=== PATIENT | female | born 1980 | race African-American/Black ===

== ENCOUNTER 2017-05-24 09:39 | Inpatient (IN) | payer OTHER ==
[~2017-05-24] VITALS: Ht 162.6 cm; Wt 85.7 kg
[2017-05-24] MEDS ORDERED: LACTATED RINGER'S 1,000 ML IV PRN (10:30)
[2017-05-24] MEDS ORDERED: LACTATED RINGER'S 1,000 ML IV SCH (10:51)
[2017-05-24 10:53] VITALS: Ht 162.6 cm; Wt 85.7 kg
[2017-05-24] MEDS ORDERED: OXYTOCIN 30 UNITS/LR 500 ML IV PRN (11:00)
[2017-05-24] MEDS ORDERED: METHYLERGONOVINE 0.2 MG INJ IM PRN ×2 (11:00→15:00)
[2017-05-24] MEDS ORDERED: LIDOCAINE 1% (MPF) 30 ML INJ INJ PRN (11:00)
[2017-05-24] MEDS ORDERED: OXYTOCIN 30 UNITS/LR 500 ML IV SCH ×2 (11:00)
[2017-05-24] MEDS ORDERED: CARBOPROST 250 MCG INJ IM PRN ×2 (11:00→15:00)
[2017-05-24] MEDS ORDERED: MISOPROSTOL 200 MCG TAB PR PRN ×2 (11:00→15:00)
[2017-05-24] MEDS ORDERED: CEFAZOLIN 2 GM/50 ML (PMX) 50 ML IV ONE (11:00)
[2017-05-24 11:17] LABS: BASOPHILS % 0.3 % (0.0-2.0); EOSINOPHILS # 0.1 10^3/ul (0.0-0.5); EOSINOPHILS % 0.5 % (0.0-7.0); HEMATOCRIT 38.1 % (37.0-47.0); HEMOGLOBIN 12.7 g/dl (12.0-16.0); LYMPHOCYTES % 22.1 % (15.0-51.0); MEAN CORPUSCULAR HEMOGLOBIN 28.7 pg (29.0-33.0); MEAN CORPUSCULAR HGB CONC 33.3 g/dl (32.0-37.0); MEAN CORPUSCULAR VOLUME 86.2 fl (82.0-101.0); MEAN PLATELET VOLUME 10.3 fl (7.4-10.4); MONOCYTE # 0.5 10^3/ul (0.3-0.9); MONOCYTES % 5.7 % (0.0-11.0); NEUTROPHIL # 6.4 10^3/ul (1.6-7.5); NEUTROPHILS % 70.1 % (39.0-77.0); PLATELET COUNT 252 10^3/UL (140-415); RED BLOOD COUNT 4.42 10^6/ul (4.20-5.40); RED CELL DISTRIBUTION WIDTH 13.2 % (11.5-14.5); WHITE BLOOD COUNT 9.1 10^3/ul (4.8-10.8)
[2017-05-24 11:51] LABS: INR 0.97; PROTIME 12.9 Sec (12.2-14.2)
[2017-05-24 11:52] LABS: PARTIAL THROMBOPLASTIN TIME 29.7 Sec (25.0-35.0)
[2017-05-24] MEDS ORDERED: OXYTOCIN 10 UNIT INJ ONE (12:45)
[2017-05-24] MEDS ORDERED: morphine SULFATE/PF (10 MG/10 ML) INJ ONE (12:45)
[2017-05-24] MEDS ORDERED: PHENYLephrine (100 MCG/ML) 5ML SYG ONE ×2 (12:45→13:32)
[2017-05-24] MEDS ORDERED: ONDANSETRON 4 MG INJ ONE (12:45)
[2017-05-24] MEDS ORDERED: MIDAZOLAM 1 MG/ML 2 ML INJ ONE (13:40)
[2017-05-24] MEDS ORDERED: DIPHENHYDRAMINE 50 MG INJ IV PRN (14:30)
[2017-05-24] MEDS ORDERED: NALOXONE (0.4 MG/ML) INJ IV PRN (14:30)
[2017-05-24] MEDS ORDERED: ONDANSETRON 4 MG INJ IV PRN (14:30)
[2017-05-24] MEDS ORDERED: KETOROLAC 30 MG INJ IV PRN (14:30)
[2017-05-24] MEDS ORDERED: morphine 2 MG INJ IV PRN (14:30)
[2017-05-24] MEDS: LACTATED RINGER'S 1,000 ML IV SCH ×2 (14:56→22:25)
[2017-05-24] MEDS ORDERED: LANOLIN 7 GM TUBE TOP PRN (15:00)
[2017-05-24] MEDS ORDERED: OXYCODONE/ACETAMINOPHEN (5/325) TAB PO PRN ×2 (15:00)
--- NOTE | 2017-05-24 15:03 | OPR ---
Operative Report Planned Procedure Procedure date May 24, 2017 Procedure(s) Repeat Performed by see signature line Intellectual Property Counsel Dr Mason Anesthesiologist: JOSH DÍAZ MD Pre-procedure diagnosis IUP at 39 weeks. Previous section x 2, for a repeat. Anesthesia Type: spinal Post-Procedure Post-procedure diagnosis Repeat Findings Viable baby girl weighing 3875 grams or 8# 9 oz, 20.5" long, and with Apgars of 9/9. Estimated Blood Loss: 500 - 600 mls Specimen(s) none Grafts/Implant(s) none Complication(s) none Pt Condition post procedure: stable Disposition: PACU Procedure Description Pt was brought to the OR and a spinal was placed. She was then prepped and draped in the usual sterile fashion. A knife was used to incise the skin down to the level of the fascia removing the old scar. Scissors were then used to extend the fascial incision bilaterally. The superior edge of the fascia was grasped and the rectus muscles were from the fascia using blunt dissection and bovie cautery. This was repeated at the lower edge of the incision as well. The rectus muscles were at midline and the peritoneum was bluntly entered using the surgeon's fingers. The incision was stretched open using the surgeon's hands. A bladder blade and Banda retractor were placed. The bladder flap was developed. A knife was used to incise the lower uterine segment and the uterus was entered using a Alexandra clamp. The incision was then stretched open using the surgeon's hands. The head was elevated and with gentle fundal pressure the baby was delivered. 30 seconds was allowed to pass and then the cord was doubly clamped and cut and the baby was brought to the warmer and the NICU respiratory team was in attendance. The placenta was manually extracted, the uterus was externalized and wrapped in a moist lap and a dry lap was used to clean the inside of the uterus. The incision was closed in 2 layers with #1 chromic suture with excellent hemostasis. The pelvis was irrigated and the uterus was replaced back into the abdomen. The incision was examined again and noted to be dry. The peritoneum was closed with 2-0 chromic and the rectus muscles were brought back together at midline using 2 interrupted figure of 8 sutures. The underbelly of the fascia was noted to be dry and the fascia was closed using 0 Vicryl from each lateral edge to midline with overlap at the midline. The incision was then irrigated well and the subcutaneous layer was closed using 0 plain suture and the skin was closed using 3-0 Monocryl in a subcuticular stitch. Steristrips with Mastosol were placed. A pressure dressing was applied overall. The pt tolerated the procedure well and was brought to the recovery room in excellent condition. ZENAIDA ZAPATA MD May 24, 2017 15:03
--- NOTE | 2017-05-24 15:06 | HP ---
Date/Time of Note Date/Time of Note DATE: 05/24/17 TIME: 15:03 OB - History Hx of Present Free Text/Dictation 36 y.o. A2 Molar1 with an IUP at 39 weeks scheduled for a repeat C- section. Estimated Due Date: May 31, 2017 : 5 Para: 2 Therapeutic : 3 Care: Good Care Ultrasounds: Normal mid trimester US Obstetrical Complications: None Medical Complications: None Past Family/Social History * Past Medical, Surgical, Family and Obstetric Histories reviewed from chart. Blood Type: O+ Rubella: immune RPR/VDRL: Negative GBS Status: Negative HBsAG: Negative OB Admission Exam Physical Exam HEENT: WNL Heart: Rhythm Normal Lungs: Clear Abdomen: WNL Extremities: Edema (1+) Reflexes: Normal Cervical Dilatation: None Effacement: 0% Station: Ballotable Membranes: Intact Amniotic Fluid: Clear Heart Rate: 140's Accelerations: Accelerations Present Decelerations: No Decelerations Varibility: Moderate Contractions on Admission: None Last 72 hours Lab Results CBC & BMP 05/24/17 10:24 OB Assessment/Plan Reason for admission: section Plan: Section ZENAIDA ZAPATA MD May 24, 2017 15:06
[2017-05-24] MEDS: OXYTOCIN 30 UNITS/LR 500 ML IV PRN (16:28)
[2017-05-24 17:00] VITALS: BP 120/56; PULSE 87; RESP 16
[2017-05-24 20:00] VITALS: BP 122/78; PULSE 66; RESP 18
[2017-05-25] VITALS: BP 127/76; PULSE 72; RESP 18
[2017-05-25 04:00] VITALS: BP 113/57; PULSE 84; RESP 20
[2017-05-25] MEDS: LACTATED RINGER'S 1,000 ML IV SCH ×3 (06:07→22:48)
[2017-05-25 08:00] VITALS: BP 116/59; PULSE 75; RESP 18
[2017-05-25 09:08] LABS: BASOPHILS % 0.2 % (0.0-2.0); EOSINOPHILS % 0.2 % (0.0-7.0); HEMATOCRIT 33.6 % (37.0-47.0); HEMOGLOBIN 11.8 g/dl (12.0-16.0); LYMPHOCYTES # 1.3 10^3/ul (0.8-2.9); MEAN CORPUSCULAR HEMOGLOBIN 29.6 pg (29.0-33.0); MEAN CORPUSCULAR HGB CONC 35.1 g/dl (32.0-37.0); MEAN CORPUSCULAR VOLUME 84.2 fl (82.0-101.0); MEAN PLATELET VOLUME 10.1 fl (7.4-10.4); MONOCYTE # 0.6 10^3/ul (0.3-0.9); MONOCYTES % 4.3 % (0.0-11.0); NEUTROPHIL # 11.2 10^3/ul (1.6-7.5); NEUTROPHILS % 84.7 % (39.0-77.0); PLATELET COUNT 207 10^3/UL (140-415); RED BLOOD COUNT 3.99 10^6/ul (4.20-5.40); WHITE BLOOD COUNT 13.3 10^3/ul (4.8-10.8)
[2017-05-25 12:00] VITALS: BP 112/60; PULSE 68; RESP 16
[2017-05-25 16:00] VITALS: BP 110/58; PULSE 66; RESP 17
[2017-05-25 20:00] VITALS: BP 117/75; PULSE 101; RESP 18
[2017-05-25] MEDS: IBUPROFEN 800 MG TAB PO SCH (21:51)
[2017-05-26 04:00] VITALS: BP 118/71; PULSE 81; RESP 19
[2017-05-26] MEDS: IBUPROFEN 800 MG TAB PO SCH ×3 (06:06→22:40)
--- NOTE | 2017-05-26 06:55 | PN ---
Date/Time of Note Date/Time of Note DATE: 05/26/17 TIME: 06:52 OB Subjective Subjective Subjective had bowel movement tolerating diet well baby has jaundice , would like to stay OB Objective Objective Objective nax temp 99 abdomen soft lochia min calf neg for tenderness OB Assessment/Plan Other Assessment: stable post c/s #2 Other plan: as ordered MARTINE HERRON MD May 26, 2017 06:55
[2017-05-26 08:00] VITALS: BP 111/61; PULSE 70; RESP 18
[2017-05-26] MEDS ORDERED: INFLUENZA VIRUS VACCINE 0.5 ML (DISPENSING) IM* ONE (09:00)
[2017-05-26 16:36] VITALS: BP 128/76; PULSE 74; RESP 16
[2017-05-26] MEDS ORDERED: HYDROCODONE/APAP (5/325) TAB PO PRN ×2 (19:00)
[2017-05-26 20:00] VITALS: BP 122/77; PULSE 78; RESP 19
[2017-05-27 04:00] VITALS: BP 124/68; PULSE 79; RESP 18
[2017-05-27] MEDS: IBUPROFEN 800 MG TAB PO SCH (05:37)
[2017-05-27 08:00] VITALS: BP 115/75; PULSE 86; RESP 16
[2017-05-27] MEDS ORDERED: DIPHTH/TET/ACEL PERTUSS (ADULT) 0.5 ML VIAL IM* ONE (09:00)
--- NOTE | 2017-05-27 11:47 | PD.PPDC ---
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
--- NOTE | 2017-05-27 12:07 | DS ---
Date/Time of Note Date/Time of Note DATE: 05/27/17 TIME: 12:05 Obstetrical Discharge Record Final Diagnosis Final Diagnosis: Term delivered Section Section: Repeat Complications Augmentation: No Induction: No Rupture of Membranes: No Condition on Discharge Physical Assessment Last Vitals: vss afebrile Voiding: Yes Bowel Movement: Yes Breast: Soft, non-tender Fundus: Firm Abdomen and Incision: wound dry abdomen soft Calf Tenderness: No Patient Condition: Stable MARTINE HERRON MD May 27, 2017 12:07
== END 2017-05-27 15:39 | disposition home or self-care (01) | DRG 766 ==
LOC: L-D 09:39 → PP1 16:52
PROVIDERS: ADMIT Obstetrics & Gynecology; ATTEND Obstetrics & Gynecology
PROC: 10D00Z1 Extraction of Products of Conception, Low, Open Approach (ICD-10-PCS; principal; 2017-05-24 12:00)
DX: O34.211 Maternal care for low transverse scar from previous cesarean delivery (principal); Z37.0 Single live birth; Z3A.39 39 weeks gestation of pregnancy
CPT/HCPCS: 85025; 85610; 85730; 86592; 86900; 86901; 90686; 90715; 94760; 99464; J0690; J1885; J2250; J2274; J2370; J2405; J2590; J7120